=== PATIENT | female | born 1980 | race American Indian/Alaskan Native ===

== ENCOUNTER 2017-07-01 09:50 | Outpatient (CLI) | payer MEDICAID ==
[2017-07-01 10:55] VITALS: BP 120/65
--- NOTE | 2017-07-01 14:04 | Ultrasound Report ---
FINAL REPORT EXAM: US OB BPP WO NON-STRESS HISTORY: BPP TECHNIQUE: Grayscale and color doppler ultrasound of the fetus was performed for biophysical profile. PRIORS: None. FINDINGS: A single live intrauterine fetus is present with a heart rate of 144 beats per minute. Estimated gestational age based on LMP is 39 weeks and 0 days with an ZAID of 07/08/2017. Biophysical profile score of 8 out of 8 was noted. Scores of 2 out of 2 were given for breathing movements, movements, posterior and tone and qualitative amniotic fluid volume. IMPRESSION: Normal biophysical profile.
--- NOTE | 2017-07-01 14:05 | Ultrasound Report ---
FINAL REPORT EXAM: US OB LIMITED HISTORY: GERONIMO TECHNIQUE: Ultrasound imaging of the fetus was performed. PRIORS: None. FINDINGS: A single live intrauterine fetus is present in cephalic presentation with a heart rate of 150 beats per minute. Estimated gestational age is 39 weeks and 0 days with an ZAID of 07/08/2017. Amniotic fluid index is 8.0 centimeters. IMPRESSION: Amniotic fluid index of 8.0 centimeters.
== END 2017-07-01 13:20 | disposition home or self-care (01) ==
LOC: TRG 09:50
PROVIDERS: ATTEND Obstetrics & Gynecology
DX: O47.1 False labor at or after 37 completed weeks of gestation (principal); Z3A.39 39 weeks gestation of pregnancy
CPT/HCPCS: 59025; 76815; 76819

== ENCOUNTER 2017-07-04 08:55 | Outpatient (CLI) | payer MEDICAID ==
[2017-07-04] MEDS ORDERED: LACTATED RINGERS 1,000 ML IV SCH (10:00)
[2017-07-04] MEDS ORDERED: VISTARIL PO PRN (10:21)
== END 2017-07-04 10:30 | disposition home or self-care (01) ==
LOC: TRG 08:55 → LD 08:56 → TRG 10:30
PROVIDERS: ATTEND Obstetrics & Gynecology
DX: O09.523 Supervision of elderly multigravida, third trimester (principal); Z3A.39 39 weeks gestation of pregnancy
CPT/HCPCS: 59025; 96360; J7120; Q0177

== ENCOUNTER 2017-07-05 10:22 | Inpatient (IN) | payer MEDICAID ==
[2017-07-05] MEDS ORDERED: PITOCin/NS 20 UNIT/1000ML DRIP 20 UNITS/1,000 ML BAG IV SCH (11:00)
[2017-07-05] MEDS ORDERED: BRETHINE IVP PRN (11:00)
[2017-07-05] MEDS ORDERED: XYLOCAINE 2% INFILTRATI NR (11:00)
[2017-07-05] MEDS ORDERED: ePHEDrine SULFATE IV PRN ×2 (11:00→13:39)
[2017-07-05] MEDS: LACTATED RINGERS 1,000 ML IV SCH ×3 (11:00→13:59)
[2017-07-05] MEDS ORDERED: POLYCILLIN/NS 2 GM/100 ML 2 GM/100 ML BAG IV NR (11:00)
[2017-07-05] MEDS ORDERED: PITOCin/NS 30 UNIT/500ML 30 UNITS/500 ML BAG IV SCH (11:00)
[2017-07-05] MEDS ORDERED: SUBLIMAZE IV PRN (11:00)
[2017-07-05 11:19] LABS: Hematocrit 30.2 % (30.3-42.9); Hemoglobin 9.7 gm/dl (10.1-14.3); Mean Corpuscular HGB Conc 32 % (30-34); Platelet Count 239 K/mm3 (140-440); Red Blood Count 4.53 M/mm3 (3.65-5.03); Red Cell Distribution Width 16.5 % (13.2-15.2)
--- NOTE | 2017-07-05 11:21 | History and Physical Report ---
History of Present Illness Date of examination: 07/05/17 Date of admission: 07/05/17 10:23 Chief complaint: Having contractions since yesterday History of present illness: 37 y/o with hx of for severe preeclampsia in 2007. care at [facility] since 6 weeks gestation. Hx of polyhydramnios at 33 wks. GBS Positive. Past History Past Medical History: no pertinent history Past Surgical History: no surgical history Family/Genetic History: none Social history: no significant social history - Obstetrical History Expected Date of Delivery: 07/08/17 Actual Gestation: 39 Week(s) 4 Day(s) : 2 Para: 1 Number of Living Children: 1 Medications and Allergies Allergies Allergy/AdvReac Type Severity Reaction Status Date / Time No Known Allergies Allergy Verified 07/04/17 09:07 Active Meds: Active Medications Ephedrine Sulfate (Ephedrine Sulfate) 10 mg IV Q2M PRN PRN Reason: Hypotension Fentanyl (Sublimaze) 100 mcg IV Q2H PRN PRN Reason: Labor Pain Ampicillin Sodium (Ampicillin/Ns 1 Gm/50 Ml) 1 gm in 50 mls @ 100 mls/hr IV Q4H KASSY; Protocol Ampicillin Sodium (Polycillin/Ns 2 Gm/100 Ml) 2 gm in 100 mls @ 100 mls/hr IV ONCE NR; Protocol Stop: 07/05/17 14:00 Lactated Ringer's (Lactated Ringers) 1,000 mls @ 125 mls/hr IV DIRECT KASSY Oxytocin/Sodium Chloride (Pitocin/Ns 20 Unit/1000ml Drip) 20 units in 1,000 mls @ 125 mls/hr IV DIRECT KASSY Oxytocin/Sodium Chloride (Pitocin/Ns 30 Unit/500ml) 30 units in 500 mls @ 2 mls /hr IV TITR KASSY; Protocol Lidocaine (Xylocaine 2%) 20 ml INFILTRATI ONCE NR Stop: 07/06/17 10:59 Mineral Oil (Mineral Oil) 30 ml PO QHS PRN PRN Reason: Constipation Terbutaline Sulfate (Brethine) 0.25 mg SUB-Q ONCE PRN PRN Reason: Hyperstimulation/Hypertonicity Terbutaline Sulfate (Brethine) 0.25 mg IVP ONCE PRN PRN Reason: Hyperstimulation/Hypertonicity Review of Systems All systems: negative - Vital Signs Vital signs: Vital Signs Temp Pulse Resp BP Pulse Ox 98.8 F 94 H 20 128/73 98 07/05/17 10:50 07/05/17 10:50 07/05/17 10:50 07/05/17 10:50 07/05/17 10:50 Temp Pulse Resp BP Pulse Ox 98.8 F 94 H 20 128/73 98 07/05/17 10:50 07/05/17 10:50 07/05/17 10:50 07/05/17 10:50 07/05/17 10:50 - Physical Exam Breasts: Positive: deferred Cardiovascular: Regular rate Lungs: Positive: Clear to auscultation Abdomen: Positive: soft Genitourinary (Female): Positive: normal external genitalia Vulva: both: normal Vagina: Positive: normal moisture Uterus: Positive: enlarged - Obstetrical FHR: category 1 Cervical Dilatation: 8 Cervical Effacement Percentage: 90 station: -1 Uterine Contraction Pattern: Irregular Uterine Contraction Intensity: Moderate Results All other labs normal. Assessment and Plan A: Active labor at 39 + weeks P; Expect
[2017-07-05] MEDS ORDERED: MINERAL OIL PO PRN (11:30)
[2017-07-05] MEDS ORDERED: BRETHINE SUB-Q PRN (11:30)
[2017-07-05 11:33] LABS: Mean Corpuscular Hemoglobin 22 pg (28-32); Mean Corpuscular Volume 67 fl (79-97)
[2017-07-05] MEDS ORDERED: NARCAN 2 MG/2 ML IV PRN (13:39)
--- NOTE | 2017-07-05 13:41 | Event Note ---
Date: 07/05/17 O: Epidural in, VE 9.5//-1, CAT one tracing, contractions every 4-5 min. A: Active labor P; Expect Pitocin augmentation
--- NOTE | 2017-07-05 13:43 | Anesthesia Consultation ---
Anesthesia Consult and Med Hx Date of service: 07/05/17 - Airway Anesthetic Teeth Evaluation: Good ROM Head & Neck: Adequate Mental/Hyoid Distance: Adequate Mallampati Class: Class II - Pulmonary Exam CTA: Yes - Cardiac Exam Cardiac Exam: RRR - Pre-Operative Health Status ASA Pre-Surgery Classification: ASA2 Proposed Anesthetic Plan: Epidural, Spinal - Pulmonary Hx Asthma: No COPD: No Hx Pneumonia: No - Cardiovascular System Hx Hypertension: No - Central Nervous System Hx Seizures: No Hx Psychiatric Problems: No - Endocrine Hx Renal Disease: No Hx End Stage Renal Disease: No Hx Hypothyroidism: No Hx Hyperthyroidism: No - Hematic Hx Anemia: No Hx Sickle Cell Disease: No - Other Systems Hx Alcohol Use: No
[2017-07-05] MEDS ORDERED: fentaNYL-BUPIV 2 MCG/ML-0.125% 200 MCG/100 ML BAG EPIDURAL SCH (14:00)
[2017-07-05] MEDS ORDERED: AMPICILLIN/NS 1 GM/50 ML 1 GM/50 ML BAG IV SCH (15:00)
[2017-07-05] MEDS ORDERED: MILK OF MAGNESIA PO PRN (16:57)
[2017-07-05] MEDS ORDERED: DULCOLAX PR PRN (16:57)
[2017-07-05] MEDS ORDERED: TYLENOL PO PRN (16:57)
[2017-07-05] MEDS ORDERED: BENADRYL PO PRN (16:57)
[2017-07-05] MEDS ORDERED: LANSINOH TP PRN (16:57)
[2017-07-05] MEDS ORDERED: TUCKS PAD TP PRN (16:57)
[2017-07-05] MEDS ORDERED: SODIUM CHLORIDE FLUSH SYRINGE 10 ML IV NR (17:00)
--- NOTE | 2017-07-05 17:05 | Procedure Note ---
OB Delivery Note - Delivery Date of Delivery: 07/05/17 Surgeon: NITHYA BORRERO Estimated blood loss: 200cc - Vaginal Delivery presentation: vertex Delivery position: OA Intrapartum events: meconium Delivery induction: none Delivery augmentation: pitocin Delivery monitor: external FHT, external uterine, internal FHT Route of delivery: Delivery placenta: spontaneous Delivery cord: 3 umbilical vessels Episiotomy: none Delivery laceration: other (bilateral labial laceration and perineal laceration repaired with 3-0 Vicryl) Anesthesia: epidural Delivery comments: of a viable female 8# 7oz at 1627 on 07/05/2017 over 1st degree separation of perineal tissue. Meconium noted at delivery and NICU called. Apgars 8/9. Lacerations repaired with 3-0 vicryl. Placenta delivered 3VCI. Mother and baby doing well. - A at 1 minute: 8 at 5 minutes: 9 Infant Gender: Female (8# 7 oz)
--- NOTE | 2017-07-05 19:10 | Post Anesthesia Evaluation ---
- Post Anesthesia Evaluation Patient Participated: Yes Airway Patent: Yes Stable Respiratory Function: Yes Nausea/Vomiting: No Temp > 96.8F: Yes Pain Manageable: Yes Adequeate Hydration: Yes Anesthesia Complications: No Block Receding Appropriately: Yes Patient on Ventilator: No
[2017-07-05] MEDS ORDERED: DERMOPLAST TP PRN (19:46)
[2017-07-05] MEDS: MOTRIN PO SCH ×2 (20:02→23:00)
[2017-07-05] MEDS: PERCOCET 5/325 PO PRN (20:02)
[2017-07-06] MEDS: PERCOCET 5/325 PO PRN (03:22)
[2017-07-06] MEDS: MOTRIN PO SCH ×5 (03:23→23:50)
[2017-07-06 05:56] LABS: Hematocrit 27.7 % (30.3-42.9); Hemoglobin 8.8 gm/dl (10.1-14.3)
--- NOTE | 2017-07-06 10:34 | Progress Note ---
Assessment and Plan A: PP Day #1 Asymptomatic Anemia P: Follow Routine Orders Ferrous Sulfate 325mg PO BID; Continue at home Depo Provera 150mg IM x 1 dose D/C Home today RTO in 6 Weeks Subjective - Subjective Date of service: 07/06/17 Patient reports: appetite normal, voiding normally, pain well controlled, flatus , ambulating normally [place]: doing well Objective - Vital Signs Latest vital signs: Vital Signs Temp Pulse Resp BP BP Pulse Ox 07/06/17 08:12 98.0 F 81 18 120/77 97 07/06/17 04:00 98.6 F 78 18 114/75 07/05/17 23:30 98.7 F 88 16 126/68 07/05/17 19:30 98.6 F 88 16 139/60 07/05/17 18:48 98.7 F 82 18 128/70 07/05/17 10:50 98.8 F 94 H 20 128/73 98 Intake and Output 07/05/17 07/06/17 07/06/17 22:59 06:59 14:59 Intake Total 300 Output Total 500 400 Balance -200 -400 Intake: Intake, Free Water 300 Output: Urine 500 400 Void 500 400 Other: Total, Output Amount 500 400 # Voids Void 600 Estimated Blood Loss 200 - Exam Breasts: Present: normal Cardiovascular: Present: Regular rate Lungs: Present: Clear to auscultation, Normal air movement Abdomen: Present: normal appearance, soft, normal bowel sounds Uterus: Present: normal, firm, fundal height below umbilicus Extremities: Present: normal - Labs Labs: Abnormal lab results 07/05/17 07/06/17 Range/Units 10:50 05:42 Hgb 9.7 L 8.8 L (10.1-14.3) gm/dl Hct 30.2 L 27.7 L (30.3-42.9) % MCV 67 L (79-97) fl MCH 22 L (28-32) pg RDW 16.5 H (13.2-15.2) %
--- NOTE | 2017-07-06 10:35 | Discharge Summary ---
Providers - Providers Date of Admission: 07/05/17 10:23 Date of discharge: 07/06/17 Attending physician: KRYSTINA BOLDEN MD Primary care physician: KRYSTINA BOLDEN MD Hospitalization Reason for admission: active labor Delivery: Episiotomy: none Laceration: 1st degree Other procedures: none complications: none Discharge diagnosis: IUP at term delivered baby: female Condition at discharge: Good Disposition: DC-01 TO HOME OR SELFCARE Plan - Provider Discharge Summary Activity: routine, no sex for 6 weeks, no heavy lifting 4 weeks, no strenuous exercise Diet: routine Instructions: routine Additional instructions: [] Smoking cessation referral if applicable(refer to patient education folder for contact #) [] Refer to [facility]'s [facility] Booklet Call your doctor immediately for: * Fever > 100.5 * Heavy vaginal bleeding ( >1 pad per hour) * Severe persistent headache * Shortness of breath * Reddened, hot, painful area to leg or breast * Drainage or odor from incision. * Keep incision clean and dry at all times and follow doctor's instructions regarding bathing/showering - Follow up plan Follow up: KRYSTINA BOLDEN MD [Primary Care Provider] - 6 Weeks
[2017-07-06] MEDS ORDERED: DEPO-PROVERA (CONTRACEPTION) IM NR (11:00)
[2017-07-06] MEDS ORDERED: FEOSOL PO SCH (11:00)
[2017-07-07] MEDS: MOTRIN PO SCH (06:00)
[2017-07-07 21:25] VITALS: BP 132/86
== END 2017-07-07 21:05 | disposition home or self-care (01) | DRG 775 ==
LOC: TRG 10:22 → LD 10:22 → TRG 10:23 → OB 18:43
PROVIDERS: ADMIT Obstetrics & Gynecology; ATTEND Obstetrics & Gynecology
PROC: 10E0XZZ Delivery of Products of Conception, External Approach (ICD-10-PCS; principal; 2017-07-05)
PROC: 0UQMXZZ Repair Vulva, External Approach (ICD-10-PCS; 2017-07-05)
PROC: 0HQ9XZZ Repair Perineum Skin, External Approach (ICD-10-PCS; 2017-07-05)
PROC: 3E0R3BZ Introduction of Anesthetic Agent into Spinal Canal, Percutaneous Approach (ICD-10-PCS; 2017-07-05)
PROC: 00HU33Z Insertion of Infusion Device into Spinal Canal, Percutaneous Approach (ICD-10-PCS; 2017-07-05)
DX: O99.824 Streptococcus B carrier state complicating childbirth (principal); Z3A.39 39 weeks gestation of pregnancy; O77.0 Labor and delivery complicated by meconium in amniotic fluid; O70.0 First degree perineal laceration during delivery; Z37.0 Single live birth; O90.81 Anemia of the puerperium; O34.211 Maternal care for low transverse scar from previous cesarean delivery
CPT/HCPCS: 36415; 85014; 85018; 85027; 86592; 86850; 86900; 86901; 99211; G0463; J0290; J2590; J7120